=== PATIENT | male | born 1970 | race Two or more races ===

== ENCOUNTER 2019-08-17 11:54 | Emergency (ER) | payer SELFPAY ==
[~2019-08-17] VITALS: Ht 185.4 cm; Wt 108.9 kg
[2019-08-17] MEDS: SODIUM CHLORIDE 0.9% 500 ML IV ONE (12:17)
[2019-08-17 13:24] LABS: Basophils # (auto) 0.1 uL; Basophils % (auto) 0.9 % (0.0-2.0); Eosinophils # (auto) 0 uL; Eosinophils % (auto) 0.3 % (0.0-7.0); Hemoglobin 16.7 g/dL (13.5-17.5); Lymphocytes # (auto) 0.8 uL; Lymphocytes % (auto) 7.5 % (10.0-50.0); Mean Corpuscular Hemoglobin 31.3 pg (28.0-32.0); Mean Corpuscular Hgb Conc. 34.7 g/dL (32.0-36.0); Mean Corpuscular Volume 90.1 fL (80.0-100.0); Monocytes # (auto) 0.8 uL; Monocytes % (auto) 7.7 % (0.0-12.0); Neutrophils # (auto) 8.8 uL; Neutrophils % (auto) 83.6 % (37.0-80.0); Platelet Count (auto) 253 10^3/uL (140-450); Red Blood Cells 5.32 10^6/uL (4.5-5.90); Red Cell Distribution Width 12.8 % (11.8-14.3); White Blood Cell 10.5 10^3/uL (4.4-10.8)
[2019-08-17 13:42] LABS: Albumin 3.8 g/dL (3.4-5.0); Blood Urea Nitrogen 12 mg/dL (7-18); Calcium 8.5 mg/dL (8.5-10.1); Chloride 102 mmol/L (98-107); Glucose 103 mg/dL (74-106); Potassium 3.7 mmol/L (3.5-5.1); Sodium 137 mmol/L (136-145)
[2019-08-17 13:45] LABS: Alanine Aminotransferase 25 U/L (16-61); Anion Gap 12 (5-15); Aspartate Aminotransferase 18 U/L (15-37); BUN/Creatinine Ratio 13.8; Carbon Dioxide 23 mmol/L (21-32); GFR African American 121 mL/min; GFR Non-African American 100 mL/min
[2019-08-17 13:51] LABS: Alkaline Phosphatase 62 U/L (45-117); Bilirubin, Total 0.4 mg/dL (0.2-1.0); Total Protein 7.4 g/dL (6.4-8.2)
[2019-08-17 18:32] VITALS: BP 148/94
== END 2019-08-17 18:33 | disposition home or self-care (01) ==
LOC: EDBD 11:54 → ER 12:02
DX: R07.89 Other chest pain (principal); F17.290 Nicotine dependence, other tobacco product, uncomplicated
CPT/HCPCS: 36415; 71045; 80053; 83735; 84484; 85025; 93005

== ENCOUNTER 2020-12-17 12:47 | Emergency (ER) | payer BC ==
[~2020-12-17] VITALS: Ht 185.4 cm; Wt 108.9 kg
[2020-12-17 12:47] VITALS: BP 149/90
[2020-12-17] MEDS ORDERED: KETOROLAC TROMETH 60MG/2ML VIAL IM ONE (14:15)
== END 2020-12-17 14:27 | disposition home or self-care (01) ==
LOC: ER 12:47
DX: S93.691A Other sprain of right foot, initial encounter (principal); M77.31 Calcaneal spur, right foot; F17.210 Nicotine dependence, cigarettes, uncomplicated; W18.39XA Other fall on same level, initial encounter; Y93.39 Activity, other involving climbing, rappelling and jumping off; Y92.89 Other specified places as the place of occurrence of the external cause; Y99.8 Other external cause status
CPT/HCPCS: 73630; 96372; 99283; J1885